=== PATIENT | male | born 1985 | race Caucasian/White ===

== ENCOUNTER 2016-11-25 12:45 | Emergency (ER) | payer OTHER ==
[~2016-11-25] VITALS: Ht 190.5 cm; Wt 70.0 kg
[2016-11-25 14:55] VITALS: BP 125/82
== END 2016-11-25 15:09 | disposition home or self-care (01) ==
LOC: EME 12:45
DX: F43.21 Adjustment disorder with depressed mood (principal); F33.9 Major depressive disorder, recurrent, unspecified; Z91.040 Latex allergy status
CPT/HCPCS: 80048; 85027; 90837; 99281; 99283; G0480